=== PATIENT | female | born 1940 | race Caucasian/White ===

== ENCOUNTER 2022-07-01 08:00 | Outpatient (CLI) | payer MEDICARE, OTHER | END 2022-07-01 08:01 | disposition home or self-care (01) | LOC: PET 08:00 | PROVIDERS: ATTEND Internal Medicine Sleep Medicine | DX: R91.8 Other nonspecific abnormal finding of lung field (principal); R91.1 Solitary pulmonary nodule; J18.1 Lobar pneumonia, unspecified organism | CPT/HCPCS: 78815; A9552 ==